=== PATIENT | male | born 1985 | race Caucasian/White ===

== ENCOUNTER 2022-01-29 13:06 | Outpatient (CLI) | payer OTHER, SELFPAY ==
[2022-01-29 14:52] LABS: Chloride* 103 mmol/L (96-114); Potassium* 4.1 mmol/L (3.6-5.1); Sodium* 140 mmol/L (135-149)
[2022-01-29 14:55] LABS: Blood Urea Nitrogen* 26 mg/dL (5-24); Carbon Dioxide* 27 mmol/L (20-32); Creatinine* 0.8 mg/dL (0.5-1.5); Estimated Glomerular Filt Rate 119 ml/min; Glucose* 92 mg/dL (60-115)
[2022-01-29 14:56] LABS: Calcium* 9.2 mg/dL (8.4-10.6)
== END 2022-01-29 13:07 | disposition home or self-care (01) ==
LOC: NFLDREF 13:07
PROVIDERS: PCP Family Medicine; Visit Provider Family Medicine
DX: E11.9 Type 2 diabetes mellitus without complications (principal)
CPT/HCPCS: 80048

== ENCOUNTER 2022-05-18 19:48 | Emergency (ER) | payer OTHER, SELFPAY ==
[2022-05-18 20:01] VITALS: BP 131/84; PULSE 82; RESP 20; TEMP 36.7; O2SAT 99; BMI 25.8
[2022-05-18 21:12] VITALS: TEMP 36.9
--- NOTE | 2022-05-18 21:25 | ED.GENADULT ---
HPI - General Adult General Chief complaint: Unspecified Complaint, Adult Stated complaint: in a lot of pain/lower body. Time Seen by Provider: 05/18/22 19:56 History of Present Illness HPI narrative: This 36-year-old male comes in with severe hemorrhoid pain. He states that he had a bowel movement earlier today and this triggered lots of pain. He states that he has had problems for many years in this regard. He says it has probably been more than 10 years that he has had these kinds of recurrent symptoms. He has not had any attention given to this recurrent problem. He otherwise is in good health. He feels a bulge at the anus and this is very tender. Related Data Previous Rx's Medication Instructions Recorded metformin 500 mg tablet,extended 1,000 mg PO DAILY #180 tabs 04/28/22 release 24 hr Allergies Allergy/AdvReac Type Severity Reaction Status Date / Time No Known Drug Allergies Allergy Verified 05/18/22 20:07 Review of Systems Status of ROS: Reports: 10 or more systems reviewed and unremarkable except as noted in History and below Narrative: Constitutional: No fevers, no weight gain or loss. Eyes: No discharge. No vision changes. HENT: No congestion, no sore throat, no ear pain. Cardiovascular: No chest pain, no palpitations. Respiratory: No shortness of breath, no wheezes, no cough. Gastrointestinal: No abdominal pain, no vomiting, no diarrhea. Genitourinary: No dysuria, no hematuria. Hemorrhoid pain. Musculoskeletal: Normal range of motion. Skin: No rashes, no pruritis. Neurological: No dizziness, weakness, sensory change, speech change. Endo/Heme/Allergies: No bruising or bleeding. No polydipsia. Pysch: no suicidality, no anxiety, no insomnia. All other systems reviewed and are negative. [facility] Medical History (Updated 05/18/22 @ 21:32 by Terry Hidalgo MD) Anxiety Attention deficit hyperactivity disorder (ADHD) Depression Gilbert's syndrome Steatosis of liver Type 2 diabetes mellitus (08/2021) Surgical History (Updated 01/14/22 @ 15:33 by Jose Figueroa) History of laparoscopic cholecystectomy (2009) History of umbilical hernia repair (11/2019) Family History (Updated 01/14/22 @ 15:35 by Jose Figueroa) Sister Connective tissue disease Father Depression Family history of early CAD Liver cancer, Onset Age: 30 Paternal Grandfather Family history of early CAD Stroke Maternal Grandfather Family history of early CAD Social History (Updated 01/14/22 @ 15:36 by Jose Figueroa) Narrative: single, automotive mechanic, 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 HEENT: Normocephalic, atraumatic. Neck: Normal range of motion. Nontender. Supple. Heart: Intact distal pulses. Lungs: No chest discomfort. No wheezes, rhonchi, or rales. Abdomen: Nontender. Back: Normal range of motion. Extremities: Normal range of motion. No injury. Skin: Multiple bulges at the anus related to chronic hemorrhoid problems. There is some purplish discoloration suggesting thrombus. Neurologic: No altered sensation. No weakness. Alert and oriented. Psychiatric: No suicidality. No anxiety or depression. No insomnia. Nursing notes and vitals signs are reviewed. Const: Vital Signs, click to edit/add: Vital Signs - 24 hr 05/18/22 20:01 05/18/22 21:12 Temperature 98.0 F 98.4 F Pulse Rate [Right Pulse Oximeter] 82 Respiratory Rate 20 Blood Pressure [Ri ght Upper Arm] 131/84 Pulse Oximetry 99 Oxygen Delivery Me thod Room Air Course Vital Signs Vital signs: Initial Vital Signs Temperature 98.0 F 05/18/22 20:01 Temperature Source Temporal Artery Scan 05/18/22 20:01 Pulse Rate 82 05/18/22 20:01 Respiratory Rate 20 05/18/22 20:01 Blood Pressure 131/84 05/18/22 20:01 Blood Pressure Mean 99 05/18/22 20:01 Blood Pressure Position Standing 05/18/22 20:01 Pulse Oximetry 99 05/18/22 20:01 Oxygen Delivery Method 05/18/22 20:01 Vital Signs Temperature 98.0 F 05/18/22 20:01 Pulse Rate 82 05/18/22 20:01 Respiratory Rate 20 05/18/22 20:01 Blood Pressure 131/84 05/18/22 20:01 Pulse Oximetry 99 05/18/22 20:01 Oxygen Delivery Method 05/18/22 20:01 Temperature 98.4 F 05/18/22 21:12 Pulse Rate 82 05/18/22 20:01 Respiratory Rate 20 05/18/22 20:01 Blood Pressure 131/84 05/18/22 20:01 Pulse Oximetry 99 05/18/22 20:01 Oxygen Delivery Method 05/18/22 20:01 Medical Decision Making MDM Narrative Medical decision making narrative: This patient comes in with hemorrhoid pain. On exam he has multiple bulging areas from his anus. Some of it is rather normal skin color but some is appearing to be more thrombosed. The patient is in distinct discomfort in this way. I did anesthetize this area with 1% lidocaine with epinephrine which brought some relief to his pain. I did discuss treatment options in indicated that there could be benefit in excising the hemorrhoid tissue to relieve a clot. The patient is agreeable to this plan. I did actually excise 4 areas that were functioning more like large skin tags. There was a small amount of bleeding but no obvious clot that was dislodged. This was all completely in the external portion of his anus. These wounds were left open to drain and heal by secondary intention. There is clearly an improvement in the appearance and his symptoms however he may need more attention from surgery clinic visit. The patient did receive tablets of [place] and Keflex. I advised him to use stool softeners to keep his bowel movements soft. Discharge Plan Discharge Clinical Impression: Hemorrhoidal skin tags Patient Disposition: Home, Self-Care Condition: Stable Additional Instructions: Take medication as prescribed. Keep stools soft by using stool softeners. Follow up with surgery Clinic. Call [phone] appointment. Prescriptions: No Action metformin 500 mg tablet extended release 24 hr 1,000 mg PO DAILY Qty: 180 2RF Follow Up/Referrals: Cy Lomeli MD [Primary Care Provider] - Stand Alone Forms: [employer] Info Instructions
[2022-05-18 21:38] VITALS: BP 125/79; PULSE 85; RESP 18; O2SAT 98
== END 2022-05-18 22:05 | disposition home or self-care (01) ==
PROVIDERS: Emergency Provider Emergency Medicine Emergency Medical Services; PCP Family Medicine
DX: K64.4 Residual hemorrhoidal skin tags (principal)
CPT/HCPCS: 46230; 99283; 99285

== ENCOUNTER 2022-05-20 05:35 | Day surgery (SDC) | payer OTHER, SELFPAY ==
[2022-05-20] VITALS (17 sets, daily range): BP systolic 104–132; BP diastolic 72–99; PULSE 49–86; RESP 16–24; TEMP 36.2–36.6; O2SAT 96–100; BMI 26.3
[2022-05-20] MEDS: LACTATED RINGERS 1000 ML 1,000 ML 100 ML IV ×2 (06:00→07:57)
[2022-05-20] MEDS: SODIUM CHLORIDE 0.9 % (FLUSH) 10 ML SYRINGE IVF (06:08)
--- NOTE | 2022-05-20 06:11 | SUR.PREOP ---
Nurse visualized picture of patient's home covid test. Test was taken on 05/19/22 @ 2100 and was negative.
--- NOTE | 2022-05-20 06:42 | PM.GSPRC ---
Operative Note Date of procedure: 05/20/22 Type of Procedure: 1. Four quadrant hemorrhoidectomy. Procedure Description: After discussing the risks and benefits of the procedure, the patient signed informed consent.? The patient was brought into the operating room. Spinal anesthesia was administered. Patient was then placed prone on the operating table with pressure points padded.? The patient was then sedated by anesthesia.?? The operative site was then prepped and draped in the usual sterile fashion.? A time-out was then performed. Perianal skin was examined and revealed redundant hemorrhoidal tissue with necrotic mucosa right and left laterally. Anoscope was inserted and frankly necrotic hemorrhoidal tissue was noted with foul smell. Then necrotic hemorrhoidal tissue was located right posterior laterally, right laterally, and right anterior laterally, and left laterally. The largest to hemorrhoids were right and left laterally. I then proceeded with hemorrhoidectomy. An elliptical incision was made with a needle tip electrocautery from the anoderm up into the anal canal just above the dentate line. Careful dissection of the hemorrhoid complex was done in the plane between the internal anal sphincter and the submucosal vascular plexus up to just above the dentate line in each quadrant described above. Some of the mucosa was already gone from previous excision of hemorrhoidal skin tags in the emergency room. Having established the proper plane, the hemorrhoidal tissue was then excised with the Ligasure device and sent to Pathology for analysis. Care was taken to preserve mucosa for a tension-free closure. The wound was closed in a running locked manner starting at the apex (proximal aspect of elliptical excision) with 3-0 chromic suture, coming out to the anoderm and then running back up in a simple fashion and tying down at the apex. Hemostasis was excellent. Right lateral and left lateral enlarged necrotic hemorrhoidal tissue was excised. There was also smaller redundant necrotic tissue right posterior laterally and right anterior laterally was excised as well and a similar manner. The anal canal was not tightened. Pressure was held for hemostasis. Bilateral pudendal nerve block was achieved with a mixture of Marcaine and Exparel. A pressure dressing was left in the anus to be removed in the PACU. ? ? The patient was then woken and transported to the recovery area in stable condition. ? The patient tolerated the procedure well. Findings: Necrotic enlarged hemorrhoidal tissue excised. Anesthesia: MAC, local and spinal Surgeon: Mansoor Bauer MD Estimated blood loss (mL): 10 Condition: stable Disposition: PACU
[2022-05-20] MEDS: hydrOXYzine pamoate 25 MG CAPSULE PO (07:53)
--- NOTE | 2022-05-20 08:01 | W.ANESCHARGE ---
Anesthesia Charges Start Date/Time Anesthesia Start Date: 05/20/22 Anesthesia Start Time: 06:41 Stop Date/Time Anesthesia Stop Date: 05/20/22 Anesthesia Stop Time: 07:54 Summary Emergency: No
--- NOTE | 2022-05-20 08:04 | W.ANESCHARGE ---
Anesthesia Charges Start Date/Time Anesthesia Start Date: 05/20/22 Anesthesia Start Time: 06:41 Stop Date/Time Anesthesia Stop Date: 05/20/22 Anesthesia Stop Time: 07:54 Summary Emergency: No
[2022-05-20] MEDS: MEPERIDINE 25 MG/ML INJ 12.5 MG IVP (08:23)
[2022-05-20] MEDS: fentaNYL 100 MCG/2 ML inj 50 MCG IVP ×2 (08:28→09:10)
[2022-05-20] MEDS: HYDROCODONE-ACETAMIN 5-325 MG 1 TAB PO ×2 (08:53→09:04)
--- NOTE | 2022-05-20 11:36 | SUR.PHASEII ---
Sent patient home with both the toilet sitz bath and a laurita bottle. Reviewed discharge instructions with patient and instructed on how to perform sitz baths. He had no further questions.
== END 2022-05-20 11:10 | disposition home or self-care (01) ==
PROVIDERS: PCP Family Medicine; Visit Provider Surgery
PROC: (CPT 46260; principal; 2022-05-20 06:45)
DX: K64.8 Other hemorrhoids (principal); K62.89 Other specified diseases of anus and rectum
CPT/HCPCS: 46260; 00902; 82962; 88304; A9270; J1885; J2175; J2250; J2370; J2400; J2704; J3010; J7120

== ENCOUNTER 2022-05-20 16:19 | Observation (INO) | payer OTHER, SELFPAY ==
[2022-05-20 17:06] VITALS: BP 110/59; PULSE 80; RESP 20; TEMP 38.2; O2SAT 96; BMI 26.6
[2022-05-20] MEDS: ONDANSETRON 2 MG/ML inj 4 MG IVP (17:37)
[2022-05-20] MEDS: HYDROmorphone 0.5 mg/0.5 ml inj IVP ×2 (17:38→23:36)
[2022-05-20 17:44] LABS: Lactate* 1.2 mmol/L (0.5-1.9)
[2022-05-20 17:45] LABS: Basophils Percent Auto 0.3 % (0.0-3.0); Eosinophils Percent Auto 0.4 % (0.0-7.0); Hematocrit 45.1 % (37.0-53.0); Hemoglobin* 15.7 gm/dL (13.5-17.5); Immature Granulocytes Pct Auto 0.1 %; Lymphocytes Percent Auto 10.2 % (20-44); Mean Corpuscular HGB Conc 35 gm/dL (32-36); Mean Corpuscular Hemoglobin 33 pg (26-34); Mean Corpuscular Volume 93 fL (80-100); Monocytes Percent Auto 9.3 % (0.0-11.0); Neutrophils Percent Auto 79.7 % (42.0-72.0); Platelet Count* 217 K/uL (140-440); RDW Coefficient of Variation % 11.6 % (11.5-15.5); Red Blood Count 4.83 m/uL (4.30-5.90); White Blood Count* 13.65 K/uL (4.50-11.00)
[2022-05-20 17:46] LABS: Slide Review Reflex No
--- NOTE | 2022-05-20 17:46 | ED.GENADULT ---
HPI - General Adult General Chief complaint: Post Op Complication Stated complaint: Extreme Pain in Groin, had surgery this AM Time Seen by Provider: 05/20/22 17:07 History of Present Illness HPI narrative: This 36-year-old male comes in because of postoperative pain. He was seen by me yesterday because of hemorrhoid problems. He had numerous hemorrhoidal tags that I removed. He returned this morning with surgery to remove thrombosed hemorrhoids. His pain medicine is worn off and returns because of postoperative pain. He does arrive with a temperature at 100.8? F. the surgeon on-call, Dr. Antunez, was aware of this patient and stated that he should be admitted for pain control. Related Data Previous Rx's Medication Instructions Recorded metformin 500 mg tablet,extended 1,000 mg PO DAILY #180 tabs 04/28/22 release 24 hr oxycodone 5 mg capsule 5 mg PO Q6H PRN pain #30 caps 05/20/22 Allergies Allergy/AdvReac Type Severity Reaction Status Date / Time No Known Drug Allergies Allergy Verified 05/20/22 17:06 Review of Systems Status of ROS: Reports: 10 or more systems reviewed and unremarkable except as noted in History and below Narrative: Constitutional: No fevers, no weight gain or loss. Eyes: No discharge. No vision changes. HENT: No congestion, no sore throat, no ear pain. Cardiovascular: No chest pain, no palpitations. Respiratory: No shortness of breath, no wheezes, no cough. Gastrointestinal: No abdominal pain, no vomiting, no diarrhea. Genitourinary: Severe anal pain status post hemorrhoidectomy. Musculoskeletal: Normal range of motion. Skin: No rashes, no pruritis. Neurological: No dizziness, weakness, sensory change, speech change. Endo/Heme/Allergies: No bruising or bleeding. No polydipsia. Pysch: no suicidality, no anxiety, no insomnia. All other systems reviewed and are negative. [facility] Medical History (Updated 05/20/22 @ 18:10 by Terry Hidalgo MD) Anxiety Attention deficit hyperactivity disorder (ADHD) Depression Gilbert's syndrome Steatosis of liver Thrombosed hemorrhoids Type 2 diabetes mellitus (08/2021) Surgical History (Updated 01/14/22 @ 15:33 by Jose Figueroa) History of laparoscopic cholecystectomy (2009) History of umbilical hernia repair (11/2019) Family History (Updated 01/14/22 @ 15:35 by Jose Figueroa) Sister Connective tissue disease Father Depression Family history of early CAD Liver cancer, Onset Age: 30 Paternal Grandfather Family history of early CAD Stroke Maternal Grandfather Family history of early CAD Social History (Updated 01/14/22 @ 15:36 by Jose Figueroa) Narrative: single, inspector final assembly mechanical, 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 HEENT: Normocephalic, atraumatic. Neck: Normal range of motion. Nontender. Supple. Heart: Intact distal pulses. Lungs: No chest discomfort. No wheezes, rhonchi, or rales. Abdomen: Nontender. Back: Normal range of motion. Extremities: Normal range of motion. No injury. Skin: Intact. No rash. Warm. No erythema or pallor. Neurologic: No altered sensation. No weakness. Alert and oriented. Psychiatric: No suicidality. No anxiety or depression. No insomnia. Nursing notes and vitals signs are reviewed. Const: Vital Signs, click to edit/add: Vital Signs - 24 hr 05/20/22 17:06 Temperature 100.8 F H Pulse Rate [Pulse Oximeter] 80 Respiratory Rate 20 Blood Pressure [Le ft Upper Arm] 110/59 L Pulse Oximetry 96 Oxygen Delivery Me thod Room Air Course Vital Signs Vital signs: Initial Vital Signs Temperature 100.8 F H 05/20/22 17:06 Temperature Source Temporal Artery Scan 05/20/22 17:06 Pulse Rate 80 05/20/22 17:06 Pulse Rhythm 05/20/22 17:06 Respiratory Rate 20 05/20/22 17:06 Blood Pressure 110/59 L 05/20/22 17:06 Blood Pressure Mean 76 05/20/22 17:06 Blood Pressure Position Left Lateral 05/20/22 17:06 Pulse Oximetry 96 05/20/22 17:06 Oxygen Delivery Method 05/20/22 17:06 Vital Signs Temperature 100.8 F H 05/20/22 17:06 Pulse Rate 80 05/20/22 17:06 Respiratory Rate 20 05/20/22 17:06 Blood Pressure 110/59 L 05/20/22 17:06 Pulse Oximetry 96 05/20/22 17:06 Oxygen Delivery Method 05/20/22 17:06 Temperature 100.8 F H 05/20/22 17:06 Pulse Rate 80 05/20/22 17:06 Respiratory Rate 20 05/20/22 17:06 Blood Pressure 110/59 L 05/20/22 17:06 Pulse Oximetry 96 05/20/22 17:06 Oxygen Delivery Method 05/20/22 17:06 Medical Decision Making MDM Narrative Medical decision making narrative: This patient arrives in distinct discomfort after surgical treatment of thrombosed hemorrhoid. An IV was established where he received Dilaudid 0.5 mg and Zofran 4 mg. I did speak with Dr. Antunez Who agrees to bring him in overnight for pain control. He did have a low-grade temperature upon arrival so labs were drawn and returned with reassuring findings. His lactate level is in normal range. After blood cultures he did receive a dose of Zosyn. He is okay to be admitted to the hospital. Lab Data Labs: Lab Results 05/20/22 05/20/22 Range/Units 17:30 17:30 WBC 13.65 H (4.50-11.00) K/uL RBC 4.83 (4.30-5.90) m/uL Hgb 15.7 (13.5-17.5) gm/dL Hct 45.1 (37.0-53.0) % MCV 93 (80-100) fL MCH 33 (26-34) pg MCHC 35 (32-36) gm/dL RDW Coeff of [place] 11.6 (11.5-15.5) % Plt Count 217 (140-440) K/uL Neut % (Auto) 79.7 H (42.0-72.0) % Lymph % (Auto) 10.2 L (20-44) % Bartholomew % (Auto) 9.3 (0.0-11.0) % Eos % (Auto) 0.4 (0.0-7.0) % Baso % (Auto) 0.3 (0.0-3.0) % Neut # (Auto) 10.90 H (1.7-7.0) K/uL Lymph # (Auto) 1.40 (0.90-2.90) K/uL Bartholomew # (Auto) 1.30 H (0.00-0.90) K/UL Eos # (Auto) 0.10 (0.00-0.50) K/uL Baso # (Auto) 0.00 (0.00-0.30) K/uL Abs Immat Gran (auto) 0.00 (0.00-0.30) K/uL Imm/Tot Granulo (auto) 0.1 % Lactate 1.2 (0.5-1.9) mmol/L Discharge Plan Discharge Clinical Impression: Thrombosed hemorrhoids Patient Disposition: Admitted As Inpatient Prescriptions: No Action oxycodone 5 mg capsule 5 mg PO Q6H PRN (Reason: pain) Qty: 30 0RF metformin 500 mg tablet extended release 24 hr 1,000 mg PO DAILY Qty: 180 2RF Follow Up/Referrals: Cy Lomeli MD [Primary Care Provider] -
[2022-05-20 18:07] LABS: Chloride* 102 mmol/L (96-114); Potassium* 3.8 mmol/L (3.6-5.1)
[2022-05-20 18:08] LABS: Sodium* 139 mmol/L (135-149)
[2022-05-20 18:09] LABS: Creatinine* 0.8 mg/dL (0.5-1.5); Est. Creatinine Clearance* 121.64; Estimated Glomerular Filt Rate 119 ml/min
[2022-05-20 18:10] LABS: Calcium* 9.2 mg/dL (8.4-10.6); Glucose* 88 mg/dL (60-115)
[2022-05-20 18:11] LABS: Blood Urea Nitrogen* 13 mg/dL (5-24); Carbon Dioxide* 31 mmol/L (20-32)
[2022-05-20] MEDS: 0.9 % SODIUM CHLORIDE 1000 ml 1,000 ML IV (18:18)
[2022-05-20] MEDS: KETOROLAC 15 MG/ML inj IVP (18:22)
[2022-05-20] MEDS: PIPERACILLIN/TAZOBACTAM 3.375 GM in 0.9 % SODIUM CHLORIDE Mini-bag 100 ML IVPB ×2 (18:24→20:53)
--- NOTE | 2022-05-20 18:28 | P.GSCN_ITS ---
History of Present Illness Consult details Date Seen: 05/20/22 Consult date: 05/21/22 Narrative: Patient is a 36-year-old male, with a history of type 2 diabetes, who presented to the emergency department for postoperative pain. He initially presented to the emergency department on 05/18/2022. At that time he apparently had numerous hemorrhoidal tags that were removed. On 05/19/[address] Bauer in clinic, who noted thrombosed hemorrhoids right and left lateral with overlying patchy necrosis, friability and obstruction of the anal canal. He was taken to the operating room on 05/20/[address] Bauer who performed a 4 quadrant hemorrhoidectomy. Patient did have a lot of postoperative pain at discharge, which worsened when he got home. He was able to urinate immediately after the procedure, but has had difficulty since. He is also running a low-grade fever in the emergency department. Denies any nausea or vomiting. No abdominal pain. No diarrhea or constipation. He has not yet had a bowel movement since surgery. Review of Systems Status of ROS: Reports: 10 or more systems reviewed and unremarkable except as noted in History and below [facility] Medical History Anxiety Attention deficit hyperactivity disorder (ADHD) Depression Gilbert's syndrome Steatosis of liver Thrombosed hemorrhoids Type 2 diabetes mellitus (08/2021) Surgical History History of laparoscopic cholecystectomy (2009) History of umbilical hernia repair (11/2019) Family History Sister Connective tissue disease Father Depression Family history of early CAD Liver cancer, Onset Age: 30 Paternal Grandfather Family history of early CAD Stroke Maternal Grandfather Family history of early CAD Social History Narrative: single, valve mechanic, 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 non-smoker rarely consumes alcohol Smoking Status: Never smoker Do you use any of these nicotine containing products: None Second hand tobacco smoke exposure: No How often do you have a drink containing alcohol: never How often do you have six or more drinks on one occasion: Never AUDIT-C Alcohol total score: 0 Non-prescribed substance use: denies use Caffeine: No Little interest or pleasure in doing things: not at all Feeling down, depressed, or hopeless: not at all service: Yes Meds Home Medications and Allergies Allergies Allergy/AdvReac Type Severity Reaction Status Date / Time No Known Drug Allergies Allergy Verified 05/20/22 17:06 Exam Narrative: Exam Narrative: General: Alert and oriented, some mild discomfort but nontoxic in appearance. Respiratory: Equal breath rise bilaterally, maintained on room air CV: Regular rhythm rate, well perfused : Incisions visualized at the anal opening, appeared intact with no concern for infection. Some mild swelling is apparent. Const: Vital Signs, click to edit/add: Vital Signs - 24 hr 05/20/22 17:06 Temperature 100.8 F H Pulse Rate [Pulse Oximeter] 80 Respiratory Rate 20 Blood Pressure [Le ft Upper Arm] 110/59 L Pulse Oximetry 96 Oxygen Delivery Me thod Room Air Results Labs Labs: Abnormal lab results 05/20/22 Range/Units 17:30 WBC 13.65 H (4.50-11.00) K/uL Neut % (Auto) 79.7 H (42.0-72.0) % Lymph % (Auto) 10.2 L (20-44) % Neut # (Auto) 10.90 H (1.7-7.0) K/uL [place] # (Auto) 1.30 H (0.00-0.90) K/UL Diabetes panel 05/20/22 Range/Units 17:30 Sodium 139 (135-149) mmol/L Potassium 3.8 (3.6-5.1) mmol/L Chloride 102 (96-114) mmol/L Carbon Dioxide 31 (20-32) mmol/L BUN 13 (5-24) mg/dL Creatinine 0.8 (0.5-1.5) mg/dL Glucose 88 (60-115) mg/dL Calcium 9.2 (8.4-10.6) mg/dL Calcium panel 05/20/22 Range/Units 17:30 Calcium 9.2 (8.4-10.6) mg/dL Pituitary panel 05/20/22 Range/Units 17:30 Sodium 139 (135-149) mmol/L Potassium 3.8 (3.6-5.1) mmol/L Chloride 102 (96-114) mmol/L Carbon Dioxide 31 (20-32) mmol/L BUN 13 (5-24) mg/dL Creatinine 0.8 (0.5-1.5) mg/dL Glucose 88 (60-115) mg/dL Calcium 9.2 (8.4-10.6) mg/dL Adrenal panel 05/20/22 Range/Units 17:30 Sodium 139 (135-149) mmol/L Potassium 3.8 (3.6-5.1) mmol/L Chloride 102 (96-114) mmol/L Carbon Dioxide 31 (20-32) mmol/L BUN 13 (5-24) mg/dL Creatinine 0.8 (0.5-1.5) mg/dL Glucose 88 (60-115) mg/dL Calcium 9.2 (8.4-10.6) mg/dL All other labs normal. Assessment and Plan Assessment and plan (1) Postoperative pain: Status: Acute Plan Patient is a 36-year-old male status post 4 quadrant hemorrhoidectomy for necrotic, thrombosed hemorrhoids. He is being admitted for pain control. On workup in the emergency department he did have a low-grade fever (100.8) mild leukocytosis (13) as well as evidence of urinary retention. Low concern at this time for surgical site infection, which is uncommon after hemorrhoid surgery (less than 1%), however submucosal abscess and deep space infection can occur. Given the presence of obvious areas of necrosis during the operation, will start the patient on IV antibiotics and trend his fevers/WBC curve. -IV and p.o. pain meds. -regular diet, will have him be NPO at midnight for re-evaluation in the morning -monitor input and output -encourage ambulation -SCDs for DVT prophylaxis -repeat CBC in the morning, trend fever curve overnight.
[2022-05-20 18:29] VITALS: BP 122/70; PULSE 74; RESP 18; O2SAT 95
[2022-05-20 18:59] LABS: SARS PCR* Negative SARS-CoV-2 (Negative)
[2022-05-20 19:00] VITALS: BP 104/58; PULSE 84; O2SAT 95
--- NOTE | 2022-05-20 19:19 | W.PC.EDHO ---
Primary Language: Preferred Language: Orientation Status: [x] Alert & Oriented [] Slight Confusion [] Known Dx Dementia Transfers By: [x] Assist of 1 [] Assist of 2 [] Lift Active Medications Discontinued Medications Generic Name Dose Route Start Last Admin Trade Name Arlin PRN Reason Stop Dose Admin Hydromorphone HCl 0.5 mg 05/20/22 17:12 05/20/22 17:38 Hydromorphone 0.5 Mg/0.5 Ml Inj IVP 05/20/22 17:13 0.5 mg ONCE ONE Administration Piperacillin Sod/Tazobactam 100 mls @ 200 mls/hr 05/20/22 17:59 05/20/22 18:24 Sod 3.375 gm/ Sodium Chloride IVPB 05/20/22 18:00 200 mls/hr ONCE ONE Administration Sodium Chloride 1,000 mls @ 1,000 mls/hr 05/20/22 18:00 05/20/22 18:18 0.9 % Sodium Chloride 1000 Ml IV 05/20/22 18:59 1,000 mls/hr .Q1H VALENTINA Administration Ketorolac Tromethamine 15 mg 05/20/22 17:59 05/20/22 18:22 Ketorolac 15 Mg/Ml Inj IVP 05/20/22 18:00 15 mg ONCE ONE Administration Ondansetron HCl 4 mg 05/20/22 17:12 05/20/22 17:37 Ondansetron 2 Mg/Ml Inj IVP 05/20/22 17:13 4 mg ONCE ONE Administration Description of Symptoms ED Triage Present Problem has severe pain in the operative area. had Description emergency type surgery today with dr vail. had necrotic areas noted while he had a hemorrhoidectomy early this am-0700. has had severe pain and unable to sit. was seen per dr mccarthy and dr mann does want to admit him for pain control. has been chilling and fever was noted in triage-100.8. dr mccarthy aware. ED Triage Date of Onset of 05/20/22 Symptoms Pain Pain Description [Posterior Burning,Sharp,Dull, Achy,Throbbing,Acute Rectum] Pain Intensity [Posterior 7 Rectum] Pain Intensity 5 Pain Intensity 8 Pain Scale Used [Posterior Numeric (1 - 10) Rectum] Pain Scale Used Numeric (1 - 10) IV Insertion/Site Date of IV Line Insertion [ 05/20/22 Right Antecubital] Oxygen Administration Pulse Oximetry 95 Pulse Oximetry 96 Oxygen Delivery Method Room Air Oxygen Delivery Method Room Air
[2022-05-20 19:30] VITALS: BP 101/60; PULSE 80; O2SAT 94
--- NOTE | 2022-05-20 19:35 | ED.NURSE ---
report given, pt will transfer to 256 with belongings.
[2022-05-20 20:10] VITALS: BP 122/73; PULSE 78; RESP 18; TEMP 36.8; O2SAT 97; BMI 27.1
[2022-05-20] MEDS: 0.9 % SODIUM CHLORIDE 1000 ml 1,000 ML 125 ML IV (20:54)
[2022-05-20] MEDS: SODIUM CHLORIDE 0.9 % (FLUSH) 10 ML SYRINGE 5 ML IVF ×2 (21:00→23:35)
[2022-05-20 23:30] VITALS: BP 102/61; PULSE 81; RESP 16; TEMP 36.8; O2SAT 97
[2022-05-21] MEDS: HYDROmorphone 0.5 mg/0.5 ml inj IVP ×2 (01:57→08:15)
[2022-05-21] MEDS: PIPERACILLIN/TAZOBACTAM 3.375 GM in 0.9 % SODIUM CHLORIDE Mini-bag 100 ML IVPB ×2 (01:57→08:14)
[2022-05-21] MEDS: lidocaine HCL 2 % JELLY (TOP) STERILE 6 ML TOPICAL ×2 (02:11→15:44)
[2022-05-21 04:15] VITALS: BP 106/63; PULSE 80; RESP 18; TEMP 37.3; O2SAT 96
[2022-05-21] MEDS: KETOROLAC 15 MG/ML inj IVP ×3 (04:15→15:38)
[2022-05-21] MEDS: SODIUM CHLORIDE 0.9 % (FLUSH) 10 ML SYRINGE 5 ML IVF (04:15)
[2022-05-21 06:17] LABS: Basophils Percent Auto 0.3 % (0.0-3.0); Eosinophils Percent Auto 0.5 % (0.0-7.0); Hematocrit 40.9 % (37.0-53.0); Hemoglobin* 13.9 gm/dL (13.5-17.5); Immature Granulocytes Pct Auto 0.1 %; Lymphocytes Percent Auto 11.1 % (20-44); Mean Corpuscular HGB Conc 34 gm/dL (32-36); Mean Corpuscular Hemoglobin 33 pg (26-34); Mean Corpuscular Volume 96 fL (80-100); Monocytes Percent Auto 11.9 % (0.0-11.0); Neutrophils Percent Auto 76.1 % (42.0-72.0); Platelet Count* 212 K/uL (140-440); RDW Coefficient of Variation % 11.8 % (11.5-15.5); Red Blood Count 4.27 m/uL (4.30-5.90); White Blood Count* 11.56 K/uL (4.50-11.00)
[2022-05-21 06:18] LABS: Slide Review Reflex No
[2022-05-21 06:31] LABS: Chloride* 106 mmol/L (96-114); Potassium* 4.3 mmol/L (3.6-5.1); Sodium* 139 mmol/L (135-149)
[2022-05-21] MEDS: 0.9 % SODIUM CHLORIDE 1000 ml 1,000 ML 125 ML IV (06:33)
[2022-05-21 06:34] LABS: Est. Creatinine Clearance* 97.31; Estimated Glomerular Filt Rate 101 ml/min
[2022-05-21 06:35] LABS: Blood Urea Nitrogen* 10 mg/dL (5-24); Calcium* 8.4 mg/dL (8.4-10.6); Carbon Dioxide* 32 mmol/L (20-32); Glucose* 91 mg/dL (60-115)
[2022-05-21 07:00] VITALS: BP 112/72; PULSE 87; RESP 18; TEMP 36.8; O2SAT 94
--- NOTE | 2022-05-21 07:41 | PC.NURSE ---
END OF SHIFT NOTE: PT PLEASANT AND COOPERATIVE WITH CARES. PT INDEPENDENT. PT RATES RECTAL PAIN 5-8/10. PT HAS BEEN NPO SINCE MIDNIGHT. PT DENIES PASSING FLATUS. NO BM. PT HAVING DIFFICULTY STARTING FLOW TO VOID D/T TO RECTAL PAIN. PT VOIDED x1 NOC. PT ASKED TO USE THE URINAL TO OBTAIN OUTPUT AMOUNT AND TO PUT CALL LIGHT ON FOR NEXT VOID SO NURSE CAN PERFORM POST VOID BLADDER SCAN. PT DID NOT VOID THE REMAINDER OF SHIFT. THIS WAS REPORTED OFF TO NEXT SHIFT NURSE. LSCTA. VSS ON RA.
[2022-05-21] MEDS: DOCUSATE SODIUM 100 MG CAPSULE PO (09:42)
[2022-05-21] MEDS: polyethylene glycoL 3350 17 GM PACK PO (09:42)
--- NOTE | 2022-05-21 09:52 | PM.DS1 ---
DS: Providers Provider Date Seen: 05/21/22 Date of admission: 05/20/22 18:29 Primary care physician: Cy Lomeli MD Admitting Clinician: Mango Bryant MD Attending Physician on discharge: Mango Bryant MD DS: Summary Hospital Course Hospital Course: Patient was admitted to the hospital after undergoing a 4 quadrant hemorrhoidectomy, for postoperative pain control. At the time of admission he did have a low-grade temperature and mild leukocytosis. He was started on IV antibiotics and his fevers/WBC curve was trended. He remained afebrile for the remaining of his hospital stay and had a down trending leukocytosis towards normal. His incisions appeared to be intact, with expected surrounding edema and no concern for local infection. At the time of discharge he was tolerating a regular diet, ambulating without difficulty and voiding independently. He did have some increased hesitancy with voiding, but had no concerns for retention at the time of discharge. He was educated on how to manage his pain at home. He will be following up with Dr. Bauer in clinic. Time Spent with Patient Time attestation: Total time spent providing and/or coordinating discharge services: Exam Narrative: Exam Narrative: General: Alert and oriented, no acute distress Respiratory: Equal breath rise bilaterally, maintained on room air CV: Regular rhythm rate Genitourinary: Incisions in place with some surrounding edema, no concern for infection. Const: Vital Signs, click to edit/add: Vital Signs - 24 hr 05/20/22 17:06 05/20/22 18:29 05/20/22 19:00 Temperature 100.8 F H Pulse Rate [Pulse Oximeter] 80 74 84 Respiratory Rate 20 18 Blood Pressure [Le ft Arm] Blood Pressure [Le ft Upper Arm] 110/59 L 122/70 104/58 L Pulse Oximetry 96 95 95 Oxygen Delivery Me thod Room Air Room Air 05/20/22 19:30 05/20/22 20:10 05/20/22 20:10 Temperature 98.3 F Pulse Rate [Pulse Oximeter] 80 78 Respiratory Rate 18 18 Blood Pressure [Le ft Arm] 122/73 Blood Pressure [Le ft Upper Arm] 101/60 Pulse Oximetry 94 97 97 Oxygen Delivery Me thod Room Air Room Air 05/20/22 23:30 05/21/22 04:15 05/21/22 07:00 Temperature 98.2 F 99.2 F 98.2 F Pulse Rate [Pulse Oximeter] 81 80 87 Respiratory Rate 16 18 18 Blood Pressure [Le ft Arm] 102/61 106/63 112/72 Blood Pressure [Le ft Upper Arm] Pulse Oximetry 97 96 94 Oxygen Delivery Me thod Room Air Room Air Room Air 05/21/22 07:00 Temperature Pulse Rate [Pulse Oximeter] 87 Respiratory Rate 18 Blood Pressure [Le ft Arm] Blood Pressure [Le ft Upper Arm] Pulse Oximetry Oxygen Delivery Me thod DS: Data Data Completed and Pending Labs on day of discharge: Labs from last 24 hours 05/21/22 05/21/22 05/20/22 05:40 05:40 18:20 WBC 11.56 H RBC 4.27 L Hgb 13.9 Hct 40.9 MCV 96 MCH 33 MCHC 34 RDW Coeff of Jovita 11.8 Plt Count 212 Neut % (Auto) 76.1 H Lymph % (Auto) 11.1 L [place] % (Auto) 11.9 H Eos % (Auto) 0.5 Baso % (Auto) 0.3 Neut # (Auto) 8.80 H Lymph # (Auto) 1.30 [place] # (Auto) 1.40 H Eos # (Auto) 0.10 Baso # (Auto) 0.00 Abs Immat Gran (auto) 0.00 Imm/Tot Granulo (auto) 0.1 Sodium 139 Potassium 4.3 Chloride 106 Carbon Dioxide 32 BUN 10 Creatinine 1.0 Estimated Creat Clear 97.31 Estimated GFR 101 Glucose 91 Lactate Calcium 8.4 SARS-CoV-2 (PCR) Negative SARS-CoV-2 05/20/22 05/20/22 05/20/22 17:30 17:30 17:30 WBC 13.65 H RBC 4.83 Hgb 15.7 Hct 45.1 MCV 93 MCH 33 MCHC 35 RDW Coeff of Jovita 11.6 Plt Count 217 Neut % (Auto) 79.7 H Lymph % (Auto) 10.2 L [place] % (Auto) 9.3 Eos % (Auto) 0.4 Baso % (Auto) 0.3 Neut # (Auto) 10.90 H Lymph # (Auto) 1.40 [place] # (Auto) 1.30 H Eos # (Auto) 0.10 Baso # (Auto) 0.00 Abs Immat Gran (auto) 0.00 Imm/Tot Granulo (auto) 0.1 Sodium 139 Potassium 3.8 Chloride 102 Carbon Dioxide 31 BUN 13 Creatinine 0.8 Estimated Creat Clear 121.64 Estimated GFR 119 Glucose 88 Lactate 1.2 Calcium 9.2 SARS-CoV-2 (PCR) Discharge Plan Discharge Disposition: Home, Self-Care Date of Admission: 05/20/22 18:29 Attending Provider on Discharge: Winter Antunez Primary Care Provider: Cy Lomeli Condition: Improved Anticipated Discharge Date/Time: 05/21/22 09:49 Discharge Medications: Continued oxycodone 5 mg capsule 5 mg PO Q6H PRN (Reason: pain) Qty: 30 0RF metformin 500 mg tablet extended release 24 hr 1,000 mg PO DAILY Qty: 180 2RF Discharge Orders: Discharge Order (Routine); Ordered 05/21/22 Ordered By: Winter Antunez Patient Education: Hemorrhoidectomy (DC) Activity Level: No strenuous activity Discharge Diet: Regular Diet Detail: Take stool softeners while on narcotic pain medicine and to avoid constipation. Stop is having greater than 2 bowel movements per day. Follow Up Appointments: Cy Lomeli MD [Primary Care Provider] - [facility] Discharge Comments: You should take Tylenol and ibuprofen scheduled for the next 48-72 hours. You have a prescription of oxycodone 5 mg tablets, please take 1-2 tablets every 6 hours as needed for severe pain. Take Sitz baths 3 times daily for comfort.
[2022-05-21 10:17] VITALS: RESP 18; TEMP 36.8
[2022-05-21 11:00] VITALS: RESP 18; TEMP 36.8; O2SAT 94
[2022-05-21] MEDS: ACETAMINOPHEN 325 MG TABLET 650 MG PO (12:20)
[2022-05-21] MEDS: OXYCODONE 5 MG TABLET PO ×2 (12:21→14:58)
--- NOTE | 2022-05-21 16:02 | PC.NURSE ---
Patient given oxycodone, tylenol and Toradol for pain. Pain medications written out for patient and a suggested time to take them. Patient is worried the pain will return. However, patient educated on pain medication and management and feels comfortable with plan at discharge. Saline lock removed from right forearm. Escorted to front entrance via wheelchair and nursing staff.
== END 2022-05-21 15:50 | disposition home or self-care (01) ==
LOC: ED 18:10 → MEDSURG 18:30
PROVIDERS: Surgery; Admitting Provider Internal Medicine; Emergency Provider Emergency Medicine Emergency Medical Services; PCP Family Medicine; Visit Provider Internal Medicine
DX: K64.5 Perianal venous thrombosis (principal); D72.829 Elevated white blood cell count, unspecified; G89.18 Other acute postprocedural pain; Z98.890 Other specified postprocedural states; E11.9 Type 2 diabetes mellitus without complications; Z79.84 Long term (current) use of oral hypoglycemic drugs
CPT/HCPCS: 36415; 80048; 83605; 85025; 87040; 87635; 96361; 96365; 96366; 96375; 96376; 99284; 99285; A9270; G0378; G0379; J1170; J1885; J2405; J2543; J7030